=== PATIENT | male | born 1995 | race Two or more races ===

== ENCOUNTER 2016-07-07 08:41 | Emergency (ER) | payer OTHER ==
[2016-07-07 08:55] VITALS: BP 158/74; PULSE 91; RESP 16; TEMP 100.8; O2SAT 98
--- NOTE | 2016-07-07 09:20 | UCPHY ---
H & P Patient Type: New Chief Complaint Nursing Narrative: LEAR PAIN FOR 3 DAYS, HAD SORE THROAT BUT NOW RESOLVED HPI/ROS: CHIEF COMPLAINT: Ear pain HISTORY OF PRESENT ILLNESS: This patient is a 21 year old man, visiting from [place] (traveling by plane), presenting with acute left ear pain. The patient arrived from [place] this week and felt that his left ear needed to pop but couldn't. He went through the week normally, then awoke this morning with acute, throbbing, left ear pain. Moderate in severity. It still feels that his ear needs to pop, associated with muffled hearing. His left ear is tender and sensitive. Denies ear drainage. He had a cough and sore throat beginning of the week, but these have resolved. He is febrile in the [facility] today, 38.2 degrees Celsius. REVIEW OF SYSTEMS: A ten point review of systems was performed and is negative with the exception of the items mentioned in the HPI. Source: Patient Exam Limitations: No limitations - Personal History Current Tetanus Diphtheria and Acellular Pertussis (TDAP): Yes Tetanus Vaccine Date: < 10 YEARS - Medical/Surgical History Hx Asthma: No Hx Chronic Respiratory Disease: No Hx Diabetes: No Hx Cardiac Disease: No Hx Renal Disease: No Hx Cirrhosis: No Hx Alcoholism: No Hx HIV/AIDS: No Hx Splenectomy or Spleen Trauma: No Other PMH: ADHD. No history of diabetes - Family History Significant Family History: No pertinent family hx - Social History Smoking Status: Never smoked Alcohol Use: Occasionally Drug Use: None Additional Social History: Visiting from [place] - Physical Exam Exam: General Appearance: Alert. Vital signs reviewed. Temperature 38.2 degrees Celsius. Eyes: Pupils equal and round, no conjunctival injection, no discharge. Anicteric. ENT, Mouth: The left TM is erythematous, dull, and bulging. The right TM is clear. No maxillary or mastoid tenderness. Mucous membranes are moist, no oropharyngeal erythema or edema. Neck: No lymphadenopathy, supple. Respiratory: Lungs are clear to auscultation; no wheezes, rales, or rhonchi. Cardiovascular: Regular rate and rhythm; no murmur, rub, or gallop. Gastrointestinal: Abdomen is soft and nontender, no masses or organomegaly, bowel sounds normal. Skin: Warm and dry, no rashes on exposed skin, normal color. Back: Nontender to palpation over the thoracolumbar spine. No CVAT. Extremities: No lower extremity edema, no calf tenderness or swelling. Neurological: Alert and oriented. Moving all four extremities easily and equally. Psychiatric: Normal affect. Constitutional: Initial Vital Signs Temperature (C) 38.2 C 07/07/16 08:48 Heart Rate 91 07/07/16 08:48 Respiratory Rate 16 07/07/16 08:48 Blood Pressure 158/74 H 07/07/16 08:48 O2 Sat (%) 98 07/07/16 08:48 O2 Delivery Mode Room Air Allergies/Adverse Reactions: No Known Allergies Allergy (Unverified 07/07/16 08:55) Home Medications: Medication Instructions Recorded Amoxicillin 500 mg PO TID 7 Days 07/07/16 Hydrocodone/APAP 5/325 [[place] 1 - 2 tab PO Q4 PRN #20 tab 07/07/16 5/325 (RX)] VYVANSE 07/07/16 Medical Decision Making ED Course/Re-evaluation: Patient presents with acute left ear pain. Left TM is moderately erythematous and bulging on exam. There is no rupture on exam. He is febrile, 38.2 degrees Celsius. Exam and presentation consistent with acute otitis media. Ear canals look fine, no external otitis. No mastoid erythema, swelling, or tenderness that might suggest mastoiditis. I have prescribed amoxicillin for antibiotic, [place] for pain. Patient is traveling back to [place] tomorrow. He will follow up with his PCP. He does not have symptoms of URI, pneumonia, influenza. Departure - Departure Disposition: Home, Routine, Self-Care Clinical Impression: Otitis media Qualifiers: Otitis media type: suppurative Laterality: left Chronicity: acute Recurrence: not specified as recurrent Spontaneous tympanic membrane rupture: without spontaneous rupture Qualified Code(s): H66.002 - Acute suppurative otitis media without spontaneous rupture of ear drum, left ear Condition: Good Instructions: Otitis Media (ED) Additional Instructions: Take the amoxicillin as prescribed for antibiotic. Take the [place], as prescribed , as needed for severe pain. Follow up with your primary care provider when you return to [place]. Adult Pain & Fever Control: We recommend Acetaminophen (Tylenol) and Ibuprofen (Motrin,Advil) for pain and fever control. When fever is high or pain severe, both drugs can be used at the same time, but at different intervals. Please note the time differences. Your dose is: Acetaminophen 650mg every 4 to 6 hours Ibuprofen 600mg every 6-8 hours with food Note: do not take Acetaminophen with Hydrocodone (Vicodin, Lortab) or Oycodone (Percocet). These medications also contain Acetaminophen. No more than 3000mg of Acetaminophen should be taken in 24 hours (for an adult). Referrals: Out of [facility], [place] primary care provider [Other] - As per Instructions NONE *PRIMARY CARE P,. [Primary Care Provider] - As per Instructions Prescriptions: Amoxicillin 500 mg PO TID 7 Days Hydrocodone/APAP 5/325 [[place] 5/325 (RX)] 1 - 2 tab PO Q4 PRN #20 tab PRN Reason: pain - PQRS PQRS Measurement: Does not apply. Report Scribed for: Ese Funk Report Scribed by: Yeni Garcia Date of Report: 07/07/16 Time of Report: 09:40 Physician Review and Approval Statement: 07/09/16 05:36 Portions of this chart were entered by a infertility medical assistant. I personally performed the physical exam, history, and MDM. I have reviewed and agree with the documentation.
== END 2016-07-07 09:49 | disposition home or self-care (01) ==
LOC: CED 08:41
DX: H66.002 Acute suppurative otitis media without spontaneous rupture of ear drum, left ear (principal)
CPT/HCPCS: 99204-PO; G0463-PO